=== PATIENT | female | born 1950 | race Caucasian/White ===

== ENCOUNTER → 2017-10-31 | Outpatient (CLI) | payer BC ==
[2017-10-31 15:17] LABS: CLARITY URINE CLEAR (CLEAR); COLOR URINE YELLOW (YELLOW); KETONES URINE NEGATIVE (NEGATIVE); LEUKOCYTE ESTERASE URINE NEGATIVE (NEGATIVE); NITRITE URINE NEGATIVE (NEGATIVE); OCCULT BLOOD URINE NEGATIVE (NEGATIVE); PH URINE 6.5 (4.5-8.0); PROTEIN URINE NEGATIVE (NEGATIVE); SPECIFIC GRAVITY URINE 1.013 (1.005-1.030); UROBILINOGEN URINE 0.2 E.U./dL (0.2-1.0)
[2017-10-31 15:24] LABS: BASOPHILS % 1.1 % (0.0-2.0); EOSINOPHILS % 3.8 % (0.0-5.0); HEMATOCRIT. 41.5 % (36.0-48.0); HEMOGLOBIN. 14.2 g/dL (12.0-16.0); LYMPHOCYTES % 28.4 % (20.0-50.0); MEAN CORPUSCULAR HEMOGLOBIN 30.5 pg (28.0-32.0); MEAN CORPUSCULAR VOLUME 89.2 fL (81.0-99.0); MEAN PLATELET VOLUME 9.7 fl (7.4-10.4); MONOCYTES % 9.5 % (2.0-8.0); NEUTROPHILS % 57.2 % (40.0-76.0); PLATELET 267 x1000/uL (130-400); RED BLOOD CELL COUNT 4.65 mill/uL (4.2-5.4); RED CELL DISTRIBUTION WIDTH 13.3 % (11.6-14.6)
[2017-10-31 15:34] LABS: CHLORIDE 102 mEq/L (98-107)
[2017-10-31 15:40] LABS: PHOSPHORUS 3.9 mg/dL (2.5-4.9)
[2017-10-31 15:41] LABS: LDL CHOLESTEROL 83 mg/dL (5-100)
[2017-10-31 15:43] LABS: HDL CHOLESTEROL 97 mg/dL (40-59); T4 FREE 1.27 ng/dL (0.76-1.46)
[2017-10-31 15:53] LABS: FOLIC ACID (FOLATE) SERUM 11.4 ng/mL (>5.38)
[2017-11-04 09:06] LABS: CCP IgG/IgA PROFILE 11 units (0-19)
== END | disposition home or self-care (01) ==
LOC: LAB 14:01
PROVIDERS: ATTEND Internal Medicine Endocrinology, Diabetes & Metabolism
DX: M25.572 Pain in left ankle and joints of left foot (principal); M85.80 Other specified disorders of bone density and structure, unspecified site; M25.562 Pain in left knee; M17.11 Unilateral primary osteoarthritis, right knee; R29.2 Abnormal reflex
CPT/HCPCS: 36415; 73560; 73600; 80053; 80061; 81003; 82306; 82607; 82746; 83036; 83735; 83921; 83970; 84100; 84439; 84443; 85025; 85651; 86038; 86200; 86431; 87086

== ENCOUNTER → 2017-11-01 | Outpatient (CLI) | payer BC | END | disposition home or self-care (01) | LOC: RAD 07:51 | PROVIDERS: ATTEND Internal Medicine Endocrinology, Diabetes & Metabolism | DX: M85.80 Other specified disorders of bone density and structure, unspecified site (principal) | CPT/HCPCS: 77080 ==

== ENCOUNTER → 2018-02-07 | Outpatient (CLI) | payer BC ==
[2018-02-07 13:47] LABS: HEPATITIS B SURFACE ANTIGEN NEGATIVE
[2018-02-07 14:16] LABS: HEPATITIS B CORE AB IGM NEGATIVE
[2018-02-07 14:17] LABS: HEPATITIS A AB IGM NEGATIVE (NEGATIVE)
== END | disposition home or self-care (01) ==
LOC: MAMMO 10:51
PROVIDERS: ATTEND Obstetrics & Gynecology Obstetrics
DX: Z12.31 Encounter for screening mammogram for malignant neoplasm of breast (principal); R79.89 Other specified abnormal findings of blood chemistry; M85.88 Other specified disorders of bone density and structure, other site
CPT/HCPCS: 36415; 77067; 80076; 82306; 82310; 86705; 86709; 86803; 87340